=== PATIENT | female | born 1995 | race Caucasian/White ===

== ENCOUNTER → 2017-04-06 | Outpatient (CLI) | payer MEDICAID | LOC: CARD 12:07 | PROVIDERS: ATTEND Internal Medicine Cardiovascular Disease | DX: Q21.2 Atrioventricular septal defect (principal); E66.01 Morbid (severe) obesity due to excess calories | CPT/HCPCS: 93306 ==

== ENCOUNTER 2018-08-13 22:11 | Emergency (ER) | payer MEDICAID ==
[~2018-08-13] VITALS: Ht 142.2 cm; Wt 68.0 kg
--- OUTSIDE RECORDS SUMMARY | 2018-08-13 22:17 | XMS REPORT | Continuity of Care Document ---
Author Author [facility] Address Unknown Phone Unavailable Allergies There is no data. Medications There is no data. Problems Date Dx Coded Attending Type Code Diagnosis Diagnosed By 09/09/2014 JOSÉ DAN APRN 758.0 DOWN'S SYNDROME 09/09/2014 JOSÉ DAN APRN V25.9 CONTRACEPTION MANAGEMENT 03/14/2017 Jared Mitchell W 278.01 MORBID OBESITY 03/14/2017 Brown, Jared W 745.4 VENTRICULAR SEPTAL DEFECT 03/14/2017 Brown Jared W E66.01 MORBID (SEVERE) OBESITY DUE TO EXCESS CALORIES 03/14/2017 Brown, Jared W Q21.2 ATRIOVENTRICULAR SEPTAL DEFECT 03/14/2017 Brown, Jared W 278.01 MORBID OBESITY 03/14/2017 Brown, Jared W 745.4 VENTRICULAR SEPTAL DEFECT 03/14/2017 Brown, Jared W E66.01 MORBID (SEVERE) OBESITY DUE TO EXCESS CALORIES 03/14/2017 Brown, Jared W Q21.2 ATRIOVENTRICULAR SEPTAL DEFECT 03/14/2017 Brown, Jared W 278.01 MORBID OBESITY 03/14/2017 Brown, Jared W 745.4 VENTRICULAR SEPTAL DEFECT 03/14/2017 Brown, Jared W E66.01 MORBID (SEVERE) OBESITY DUE TO EXCESS CALORIES 03/14/2017 Brown, Jared W Q21.2 ATRIOVENTRICULAR SEPTAL DEFECT 04/10/2017 KATY MENESES MD Ot E66.01 MORBID (SEVERE) OBESITY DUE TO EXCESS CA 04/10/2017 KATY MENESES MD Ot Q21.2 ATRIOVENTRICULAR SEPTAL DEFECT 04/12/2017 KATY MENESES MD Ot E66.01 MORBID (SEVERE) OBESITY DUE TO EXCESS CA 04/12/2017 KATY MENESES MD Ot Q21.2 ATRIOVENTRICULAR SEPTAL DEFECT 04/17/2017 KATY MENESES MD Ot E66.01 MORBID (SEVERE) OBESITY DUE TO EXCESS CA 04/17/2017 KATY MENESES MD Ot Q21.2 ATRIOVENTRICULAR SEPTAL DEFECT Procedures Code Description Performed By Performed On J1050 DEPO PROVERA 09/09/2014 [id number] THERAPUTIC INJ SQ/IM 09/09/2014 Results Test Result Range Thyroid Stimulating Hormone - 03/14/17 09:49 TSH 3.23 mIU/mL 0.32-5.00 Encounters ACCT No. Visit Date/Time Discharge Status Pt. Type Provider Facility Loc./Unit Complaint [id number] 09/09/2014 15:44:00 09/09/2014 23:59:59 CLS Outpatient JOSÉ DAN APRN [id number] 04/06/2017 12:07:00 04/06/2017 23:59:59 CLS Outpatient KATY MENESES MD [facility] CARD AVSD [id number] 03/14/2017 09:49:00 03/14/2017 23:59:00 DIS Outpatient Jared Mitchell
--- OUTSIDE RECORDS SUMMARY | 2018-08-13 22:17 | XMS REPORT ---
Author Author ANA LOMBARDO Organization [facility] Address [address] [place] [address] Care Team Providers Care Tank Farm Attendant Name Role Phone ANA LOMBARDO Unavailable PROBLEMS Type Condition ICD9-CM Code SZO80-TH Code Onset Dates Condition Status SNOMED Code Problem Surveillance of contraceptive injection Z30.42 Active [id number] ALLERGIES Substance Reaction Event Type Date Status N.K.D.A. Unknown Non Drug Allergy May, Unknown SOCIAL HISTORY No smoking Hx information available PLAN OF CARE Activity Details Follow Up 1 Year Reason: VITAL SIGNS Height 58 in 2016-06-07 Weight 189.6 lbs 2016-06-07 Temperature 97.6 degrees Fahrenheit 2016-06-07 Heart Rate 72 bpm 2016-06-07 Respiratory Rate 20 2016-06-07 BMI 39.62 kg/m2 2016-06-07 Blood pressure systolic 112 mmHg 2016-06-07 Blood pressure diastolic 70 mmHg 2016-06-07 MEDICATIONS Medication Instructions Dosage Frequency Start Date End Date Duration Status Depo-Provera 150 MG/ML Intramuscular Every 3 months 1 ml Nov, Active RESULTS No Results PROCEDURES Procedure Date Ordered Related Diagnosis Body Site VISUAL ACUITY SCREEN Jun 07, 2016 Preventive Care Est Pt. Age 18-39 Jun 07, 2016 IMMUNIZATIONS No Known Immunizations
--- NOTE | 2018-08-13 22:55 | NUR ---
PROVIDER IN ROOM. PT REPORTS TENDERNESS UPON LIGHT PALPATION TO MEDIAL NECK PREFORMED BY PROVIDER. C-COLLAR IN PLACE. DENIES THROAT DISCOMFORT UPON SWALLOWING @ THIS TIME.
[2018-08-13 23:02] LABS: BASOPHILS # (AUTO) 0.1 10^3/uL (0.0-0.1); BASOPHILS % (AUTO) 1 % (0-10); EOSINOPHILS # (AUTO) 0.1 10^3/uL (0.0-0.3); EOSINOPHILS % (AUTO) 1 % (0-10); HEMATOCRIT 42 % (35-52); HEMOGLOBIN 14.3 G/DL (11.5-16.0); LYMPHOCYTES # (AUTO) 1.7 X 10^3 (1.0-4.0); LYMPHOCYTES % (AUTO) 21 % (12-44); MEAN CORPUSCULAR HEMOGLOBIN 31 PG (25-34); MEAN CORPUSCULAR HGB CONC 34 G/DL (32-36); MEAN CORPUSCULAR VOLUME 91 FL (80-99); MEAN PLATELET VOLUME 10.4 FL (7.4-10.4); MONOCYTES # (AUTO) 0.8 X 10^3 (0.0-1.0); MONOCYTES % (AUTO) 10 % (0-12); NEUTROPHILS # (AUTO) 5.3 X 10^3 (1.8-7.8); NEUTROPHILS % (AUTO) 67 % (42-75); PLATELET COUNT 217 10^3/uL (130-400); WHITE BLOOD COUNT 7.9 10^3/uL (4.3-11.0)
[2018-08-13 23:16] LABS: ALBUMIN 4.4 GM/DL (3.2-4.5); BILIRUBIN,TOTAL 0.4 MG/DL (0.1-1.0); CALCIUM 9.6 MG/DL (8.5-10.1); CREATININE SERUM 1.39 MG/DL (0.60-1.30); TOTAL PROTEIN 7.6 GM/DL (6.4-8.2)
[2018-08-13] MEDS ORDERED: NS IV 1000 ML 1,000 ML IV ONE (23:38)
--- NOTE | 2018-08-14 00:59 | ED Syncope ---
General Chief Complaint: Trauma-Non Activation Stated Complaint: PASSED OUT Nursing Triage Note: PT AMB TO ROOM #5 W/O DIFFICULTY. A&OX4. MOTHER @ SIDE REPORTS @ APPROX 2100 PT EXPERIENCED X3 SYNCOPAL EPISODES. MOTHER REPORTS DURING FIRST FALL, PT BEGAN TO STUMBLE WHILE VACUUMING, AND FELL FORWARD STRIKING FRONT OF HEAD ON CABINET. MOTHER REPORTS PT STOOD UP WITH HER ASSIST, AND THEN AGAIN FELL FORWARD STRIKING HEAD ON CABINET. MOTHER REPORTS PT THEN STOOD UP WITH HER ASSIST, AMB A COUPLE STEPS, AND FELL FACE FORWARD TO GROUND. MOTHER REPORTS AFTER THIRD FALL, PT WAS DISORIENTED FOR APPROX X3 MINUTES, LOST CONTINENCE OF BLADDER, AND BECAME PALE. MOTHER REPORTS THROUGHOUT THIS DAY, SHE HAS NOTICED AN INCREASE IN PT TALKING WITH SELF AND NOT FOLLOWING DIRECTIONS EASILY. C-COLLAR PLACED DURING TRIAGE. REPORTS PAIN TO THRAOT UPON SWALLOWING. Source of Information: Patient Exam Limitations: No Limitations History of Present Illness Date Seen by Provider: Aug 13, 2018 Time Seen by Provider: 22:55 Initial Comments This 22-year-old young lady with Down syndrome presents to the emergency room by private vehicle accompanied by her mother after having a syncopal episode at home. She was helping her mother in the kitchen and had been vacuuming. She then became limp and slumped over striking her head on the counter. She gene up and then did the same thing again. After striking her head on the counter a second time, she fell to the floor and strike her head on the floor. Mother reports she was unresponsive for about 3-4 minutes and pale. She also was incontinent during that time. She has no prior episodes of syncope. She sees Dr. Narayan for cardiology follow-up appointments. 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 She has had no significant health problems since then aside from tonsillectomy at age 5. Family reports that she seemed a little confused today and was talking to herself which is not her norm. She seems a little confused now as well. She does have neck pain and tenderness. She was placed in a c-collar by nursing staff during assessment. She is alert and moving all 4 extremities equally. Patient also initially complained of sore throat but states it no longer hurts. Patient did get up and shower after the syncopal episode. She complained of some pain in her forehead while showering. She has been able to ambulate without difficulty. Allergies and Home Medications Allergies Coded Allergies: No Known Drug Allergies (Unverified , 08/13/18) Patient Home Medication List Home Medication List Reviewed: Yes Review of Systems Constitutional: no symptoms reported EENTM: no symptoms reported Respiratory: no symptoms reported Cardiovascular: see HPI Gastrointestinal: no symptoms reported Genitourinary: no symptoms reported : No Musculoskeletal: see HPI Skin: no symptoms reported Psychiatric/Neurological: See HPI Past Vcfbguo-Ixhhvi-Wieshz Hx Past Med/Social Hx: Reviewed and Corrections made Patient Social History Recent Foreign Travel: No Contact w/Someone Who Travel: No Recent Infectious Disease Expo: No Past Medical History Surgeries: Yes Adenoidectomy, Cardiac (AV septal defect repaired at age 2), Tonsillectomy Respiratory: No Cardiac: Yes (AV septal defect) Neurological: Yes (Downs Syndrome) : No Reproductive Disorders: No Genitourinary: No Gastrointestinal: No Musculoskeletal: No Endocrine: No HEENT: No Cancer: No Psychosocial: Yes (Downs Syndrome) Physical Exam Vital Signs Vital Signs - First Documented 08/13/18 22:20 Temp 98.4 Pulse 65 Resp 16 B/P (MAP) 127/79 (95) Pulse Ox 97 O2 Delivery Room Air Capillary Refill : Less Than 3 Seconds Height, Weight, BMI Height: 4'8.00" Weight: 150lbs. oz. 68.600096cz; BMI Method:Stated General Appearance: No Apparent Distress, WD/WN HEENT: PERRL/EOMI, Normal ENT Inspection, Other (teeth intact) Neck: Normal Inspection, Tender Midline, Other (c-collar in place) Cardiovascular: Regular Rate, Rhythm, No Edema, No Murmur Respiratory: Lungs Clear, Normal Breath Sounds, No Accessory Muscle Use, No Respiratory Distress Gastrointestinal: Normal Bowel Sounds, Non Tender, Soft Extremities: Normal Inspection, Non Tender, No Pedal Edema Neurologic/Psychiatric: Alert, Oriented x3, No Motor/Sensory Deficits, Normal Mood/Affect, investigation clerk II-XII Norm as Tested Cranial Nerves: Normal Hearing, Normal Speech, PERRL Motor/Sensory: No Motor Deficit, No Sensory Deficit Skin: Normal Color, Warm/Dry Progress/Results/Core Measures Results/Orders Lab Results Laboratory Tests Test 08/13/18 22:40 Range/Units White Blood Count 7.9 4.3-11.0 10^3/uL Red Blood Count 4.60 4.35-5.85 10^6/uL Hemoglobin 14.3 11.5-16.0 G/DL Hematocrit 42 35-52 % Mean Corpuscular Volume 91 80-99 FL Mean Corpuscular Hemoglobin 31 25-34 PG Mean Corpuscular Hemoglobin Concent 34 32-36 G/DL Red Cell Distribution Width 14.0 10.0-14.5 % Platelet Count 217 130-400 10^3/uL Mean Platelet Volume 10.4 7.4-10.4 FL Neutrophils (%) (Auto) 67 42-75 % Lymphocytes (%) (Auto) 21 12-44 % Monocytes (%) (Auto) 10 0-12 % Eosinophils (%) (Auto) 1 0-10 % Basophils (%) (Auto) 1 0-10 % Neutrophils # (Auto) 5.3 1.8-7.8 X 10^3 Lymphocytes # (Auto) 1.7 1.0-4.0 X 10^3 Monocytes # (Auto) 0.8 0.0-1.0 X 10^3 Eosinophils # (Auto) 0.1 0.0-0.3 10^3/uL Basophils # (Auto) 0.1 0.0-0.1 10^3/uL Sodium Level 139 135-145 MMOL/L Potassium Level 4.0 3.6-5.0 MMOL/L Chloride Level 106 98-107 MMOL/L Carbon Dioxide Level 20 L 21-32 MMOL/L Anion Gap 13 5-14 MMOL/L Blood Urea Nitrogen 17 7-18 MG/DL Creatinine 1.39 H 0.60-1.30 MG/DL Estimat Glomerular Filtration Rate 47 BUN/Creatinine Ratio 12 Glucose Level 84 70-105 MG/DL Calcium Level 9.6 8.5-10.1 MG/DL Corrected Calcium 9.3 8.5-10.1 MG/DL Total Bilirubin 0.4 0.1-1.0 MG/DL Aspartate Amino Transf (AST/SGOT) 24 5-34 U/L Alanine Aminotransferase (ALT/SGPT) 17 0-55 U/L Alkaline Phosphatase 69 40-136 U/L Total Protein 7.6 6.4-8.2 GM/DL Albumin 4.4 3.2-4.5 GM/DL My Orders Orders - SHEILA ARGUETA MD Cbc With Automated Diff (08/13/18 22:54) Comprehensive Metabolic Panel (08/13/18 22:54) Saline Lock/Iv-Start (08/13/18 22:54) Ekg Tracing (08/13/18 22:54) Monitor-Rhythm Ecg Trace Only (08/13/18 22:54) Ct Head/Cervical Spine Wo (08/13/18 23:13) Chest 1 View, Ap/Pa Only (08/13/18 23:13) Ns Iv 1000 Ml (Sodium Chloride 0.9%) (08/13/18 23:38) Medications Given in ED Current Medications Medications Dose Ordered Sig/Yecenia Route Start Time Stop Time Status Last Admin Dose Admin Sodium Chloride 1,000 ml @ 0 mls/hr Q0M ONCE IV 08/13/18 23:38 08/13/18 23:40 DC 08/13/18 23:47 0 MLS/HR Vital Signs/I&O 08/13/18 08/14/18 22:20 01:50 Temp 98.4 98.4 Pulse 65 65 Resp 16 16 B/P (MAP) 127/79 (95) 109/77 (88) Pulse Ox 97 99 O2 Delivery Room Air Room Air Blood Pressure Mean: 95 Progress Progress Note : Progress Note C-collar was applied by nursing staff during initial assessment. CT of the head and cervical spine was obtained. There is a questionable fracture of the facet joint on the right of C4. Patient does have pain in the posterior neck which could correlate. I discussed the situation with Dr. Gan, orthopedist on-call. Since he is not credentialed before spines, he recommended I discussed the case with a neurosurgeon or spine surgeon. Case was reviewed with Dr. Farmer, neurosurgeon pulmonary specialist at [facility]. He recommended the patient be assessed further by neurosurgery before determining disposition. Mother is agreeable to transfer to [facility] for further evaluation. Creatinine was mildly elevated and IV fluids were administered. Initial ECG Impression Date: Aug 13, 2018 Initial ECG Impression Time: 23:46 Initial ECG Rate: 59 Initial ECG Rhythm: Normal Sinus Initial ECG Intervals: Normal Initial ECG Impression: Normal Comment Normal sinus rhythm with no ST elevation or depression. No abnormal intervals or axis deviation. Diagnostic Imaging Diagonstic Imaging: CT Plain Films/CT/US/NM/MRI: c-spine, head Comments CT head and C-spine viewed by me and a stat rad report reviewed. CT of the head was unremarkable. CT of the C-spine demonstrated possible C4 right superior facet nondisplaced fracture versus chronic changes. Diagonstic Imaging: Xray Plain Films/CT/US/NM/MRI: chest Comments Chest x-ray viewed by me. Report not yet available. No acute abnormalities appreciated. Departure Impression Primary Impression: Syncope and collapse Additional Impression: Fx C4 vertebra-closed Qualified Codes: S12.391A - Other nondisplaced fracture of fourth cervical vertebra, initial encounter for closed fracture Disposition: XFER SHT-TRM HOSP Condition: Improved Transfer Time Spoke to Accepting Phy: 00:55 Transfer Progress Notes Case discussed with Dr. Farmer, neurosurgeon pulmonary specialist, and Dr. Zuluaga, ER physician , who graciously accepted the transfer. Transfer Time: 01:50 Transfer Facility: [facility] Method of Transfer: EMS Departure-Patient Inst. Referrals: TRINY BROWNE DO (PCP) Primary Care Physician VIVIANA SWEENEY (Family) Primary Care Physician SHEILA ARGUETA MD Aug 14, 2018 00:59
[2018-08-14 01:50] VITALS: BP 109/77
--- NOTE | 2018-08-14 07:12 | Diagnostic Imaging Report ---
PROCEDURE: CT head and CT cervical spine without contrast. TECHNIQUE: Multiple contiguous axial images were obtained through the brain and cervical spine without the use of intravenous contrast. Sagittal and coronal reformations through the cervical spine were then performed. Auto Exposure Controls were utilized during the CT exam to meet ALARA standards for radiation dose reduction. INDICATION: Syncope, injury to the posterior head and neck. COMPARISON: None FINDINGS: CT head: The ventricles and cortical sulci appear age-appropriate. There is no midline shift or mass effect. No acute intracranial hemorrhage is seen. There is no CT evidence of acute territorial ischemia. No acute fracture is seen. There is a mucous retention cyst in the right maxillary sinus. CT cervical spine: There is no spondylolisthesis. There is a small defect in the right C4 superior articular process, which appears to be chronic. There is also a chronic appearing defect at the right superior facet of C6. The vertebral body heights are preserved. The disc heights are generally preserved. No bony fragments or hyperdense fluid collections are seen in the spinal canal. The soft tissues about the cervical spine are otherwise unremarkable. Mild motion artifact is present. IMPRESSION: 1. No acute intracranial hemorrhage or CT evidence of acute territorial ischemia. No calvarium fracture is seen. 2. Small defects in the right superior facet of C4 and C6 are thought to most likely be chronic. No definite acute fracture is seen in the cervical spine. Dictated by: Dictated on workstation # [id number]
--- NOTE | 2018-08-14 07:12 | Diagnostic Imaging Report ---
INDICATION: Passed out COMPARISON STUDIES: None FINDINGS: Portable view of the chest demonstrates sternotomy changes. Heart size and vascularity are normal. The lungs are clear. There are no pleural effusions. IMPRESSION: There are no acute findings. Dictated by: Dictated on workstation # [id number]
== END 2018-08-14 01:50 | disposition short-term general hospital (02) ==
LOC: EDUNIT# 22:11 → ER 22:13
DX: S12.391A Other nondisplaced fracture of fourth cervical vertebra, initial encounter for closed fracture (principal); R55 Syncope and collapse; Q90.9 Down syndrome, unspecified; Z90.89 Acquired absence of other organs; W01.198A Fall on same level from slipping, tripping and stumbling with subsequent striking against other object, initial encounter; Y92.000 Kitchen of unspecified non-institutional (private) residence as the place of occurrence of the external cause
CPT/HCPCS: 36415; 70450; 71045; 72125; 80053; 85025; 93005; 93041

== ENCOUNTER 2018-09-23 12:53 | Outpatient (RCR) | payer MEDICAID | END 2018-12-22 | disposition home or self-care (01) | LOC: CARD 12:53 | PROVIDERS: ATTEND Physician Assistant | DX: Q21.2 Atrioventricular septal defect (principal); R55 Syncope and collapse; E66.01 Morbid (severe) obesity due to excess calories | CPT/HCPCS: 93270 ==

== ENCOUNTER → 2022-03-29 | Outpatient (CLI) | payer MEDICAID | LOC: CARD 13:58 | PROVIDERS: ATTEND Physician Assistant | DX: I10 Essential (primary) hypertension (principal); Z87.74 Personal history of (corrected) congenital malformations of heart and circulatory system | CPT/HCPCS: 93306 ==

== ENCOUNTER 2022-04-27 05:43 | Outpatient (CLI) | payer MEDICAID ==
[~2022-04-27] VITALS: Ht 144.8 cm; Wt 86.2 kg
[2022-05-02] MEDS ORDERED: FEXO-338 PO (11:23)
[2022-05-02] MEDS ORDERED: FLDR.1T PO (11:23)
[2022-05-02] MEDS ORDERED: LEVE100015 PO (11:23)
== END 2022-05-02 15:21 | disposition home or self-care (01) ==
LOC: PREOP 05:43
PROVIDERS: ATTEND Specialist
DX: Z01.818 Encounter for other preprocedural examination (principal)

== ENCOUNTER 2022-05-05 05:53 | Day surgery (SDC) | payer MEDICAID ==
[2022-05-05] VITALS (7 sets, daily range): BP systolic 103–114; BP diastolic 52–80
[~2022-05-05] VITALS: Ht 144.7 cm; Wt 86.2 kg
[~2022-05-05 05:53] MED LIST: FEXO-338 PO; FLDR.1T PO; LEVE100015 PO
[2022-05-05] MEDS ORDERED: MOXIFLOXACIN OPHTH SOLN 5 MG/ML 0.3 ML SYRINGE OP ONE (06:15)
[2022-05-05] MEDS ORDERED: POVIDONE (BETADINE) OPHTH SOLN 5% 30 ML OP ONE (06:15)
[2022-05-05] MEDS ORDERED: TIMOLOL 0.5% (CATARACTS) 0.3 ML BTL OU PRN (06:15)
[2022-05-05] MEDS: TETRACAINE 0.5% OPHTH SOLN 4 ML BTL (SINGLE DOSE ONLY) OU PRN ×4 (06:19→06:43)
[2022-05-05] MEDS: PHENYLEPHRINE 10% OPHTH (NEO-SYN) 5 ML BTL OU SCH ×3 (06:31→06:43)
[2022-05-05] MEDS: TROPICAMIDE 1% OPH SOLN (MYDRIACYL) 15 ML BTL OP SCH ×3 (06:31→06:43)
[2022-05-05] MEDS ORDERED: proPOfol 200 MG/20 ML (DIPRIVAN) VIAL IV ONE (06:55)
[2022-05-05] MEDS ORDERED: MIDAZOLAM 2 MG/2 ML (VERSED) VIAL ONE (06:55)
[2022-05-05] MEDS ORDERED: LIDOCAINE PF 2% 5 ML (XYLOCAINE) VIAL ONE (06:55)
[2022-05-05] MEDS ORDERED: ONDANSETRON 4 MG/2 ML (SDV) Z0FRAN ONE (06:55)
[2022-05-05] MEDS ORDERED: SEVOFLURANE (ULTANE) 15 ML INHAL SOLN ONE (07:24)
--- NOTE | 2022-05-05 07:26 | Ophthalmologist Pre-Op Note ---
Pre-Operative Progress Note H&P Reviewed The H&P was reviewed, patient examined and no changes noted. Date H&P Reviewed: May 05, 2022 Time H&P Reviewed: 06:57 Pre-Op Dx Cataract, Right Eye VIDYA THOMAS MD May 05, 2022 07:26
--- NOTE | 2022-05-05 07:27 | Ophthalmology Operative Report ---
Cataract removal/placement IOL PREOPERATIVE DIAGNOSIS: Cataract Right Eye POSTOPERATIVE DIAGNOSIS: Cataract Right Eye PROCEDURE: Cataract removal and placement of posterior chamber implant, right eye SURGEON: Alexandr Thomas ANESTHESIA: General COMPLICATIONS: None ESTIMATED BLOOD LOSS: Minimal DESCRIPTION OF PROCEDURE: After proper informed consent was obtained, the patient, a 26 female, was taken to the Operating Room and the right eye was anesthetized with tetracaine. The right eye was then prepped and draped in the usual manner. A wire lid speculum was placed. A paracentesis was made at the left hand position. Preservative free lidocaine was injected into the anterior chamber followed by viscoelastic. A clear corneal incision was made in the temporal position. A capsulorrhexis was preformed and the central nuclear and cortical material were removed. The posterior capsule was polished and Andrea 11.5 AU00T0 IOL was placed into the capsular bag. The residual viscoelastic was aspirated and balanced saline solution was injected into the anterior chamber. Moxifloxacin was injected into the anterior chamber. The wound was checked and found to be water tight. The patient tolerated the procedure well without complications. ALEXANDR THOMAS MD May 05, 2022 07:27
[2022-05-05] MEDS ORDERED: LACTATED RINGERS 1,000 ML IV PRN (07:45)
[2022-05-05] MEDS ORDERED: ONDANSETRON 4 MG/2 ML (SDV) Z0FRAN IVP PRN (07:45)
[2022-05-05] MEDS ORDERED: morphine INJ 10 MG/ML 1ML (SYR OR VIAL) IVP ONE (07:45)
[2022-05-05] MEDS ORDERED: acetaZOLAMIDE ER 500 MG CAP (DIAMOX SEQUELS) PO ONE (08:00)
--- NOTE | 2022-05-05 13:47 | Anesthesia-General Post-Op ---
General Patient Condition Mental Status/LOC: Same as Preop Cardiovascular: Satisfactory Nausea/Vomiting: Absent Respiratory: Satisfactory Pain: Controlled Complications: Absent Post Op Complications Complications None Follow Up Care/Instructions Patient Instructions None needed. Anesthesia/Patient Condition Patient Condition Patient is doing well, no complaints, stable vital signs, no apparent adverse anesthesia problems. No complications reported per nursing. PETER SUAZO CRNA May 05, 2022 13:46
== END 2022-05-05 08:30 | disposition home or self-care (01) ==
LOC: SDC 05:53
PROVIDERS: ATTEND Specialist
DX: H25.9 Unspecified age-related cataract (principal)
CPT/HCPCS: 66984; V2632

== ENCOUNTER 2022-05-18 09:57 | Outpatient (CLI) | payer MEDICAID | END 2022-05-25 08:15 | disposition home or self-care (01) | LOC: PREOP 09:57 | PROVIDERS: ATTEND Specialist | DX: Z01.818 Encounter for other preprocedural examination (principal) ==

== ENCOUNTER 2022-05-26 06:09 | Day surgery (SDC) | payer MEDICAID ==
[~2022-05-26] VITALS: Ht 144.8 cm; Wt 86.2 kg
[2022-05-26] MEDS ORDERED: MOXIFLOXACIN OPHTH SOLN 5 MG/ML 0.3 ML SYRINGE OP ONE (06:15)
[2022-05-26] MEDS ORDERED: POVIDONE (BETADINE) OPHTH SOLN 5% 30 ML OP ONE (06:15)
[2022-05-26] MEDS ORDERED: TIMOLOL 0.5% (CATARACTS) 0.3 ML BTL OU PRN (06:15)
[2022-05-26] MEDS: TETRACAINE 0.5% OPHTH SOLN 4 ML BTL (SINGLE DOSE ONLY) OU PRN ×4 (06:21→06:41)
[2022-05-26] MEDS: PHENYLEPHRINE 10% OPHTH (NEO-SYN) 5 ML BTL OU SCH ×3 (06:31→06:41)
[2022-05-26] MEDS: TROPICAMIDE 1% OPH SOLN (MYDRIACYL) 15 ML BTL OP SCH ×3 (06:31→06:41)
[2022-05-26] MEDS ORDERED: ONDANSETRON 4 MG/2 ML (SDV) Z0FRAN ONE (06:47)
[2022-05-26] MEDS ORDERED: LIDOCAINE PF 2% 5 ML (XYLOCAINE) VIAL ONE (06:47)
[2022-05-26] MEDS ORDERED: proPOfol 200 MG/20 ML (DIPRIVAN) VIAL IV ONE (06:47)
[2022-05-26] MEDS ORDERED: fentaNYL INJ 100 MCG/2 ML AMP ONE (06:47)
[2022-05-26] MEDS ORDERED: MIDAZOLAM 2 MG/2 ML (VERSED) VIAL ONE (06:47)
--- NOTE | 2022-05-26 06:49 | Ophthalmologist Pre-Op Note ---
Pre-Operative Progress Note H&P Reviewed The H&P was reviewed, patient examined and no changes noted. Date H&P Reviewed: May 26, 2022 Time H&P Reviewed: 06:49 Pre-Op Dx Cataract, Left Eye VIDYA THOMAS MD May 26, 2022 06:49
[2022-05-26 07:00] VITALS: BP 103/65
[2022-05-26] MEDS ORDERED: LACTATED RINGERS 1,000 ML IV PRN (07:15)
[2022-05-26] MEDS ORDERED: SEVOFLURANE (ULTANE) 15 ML INHAL SOLN ONE (07:39)
--- NOTE | 2022-05-26 07:41 | Ophthalmology Operative Report ---
Cataract removal/placement IOL PREOPERATIVE DIAGNOSIS: Cataract Left Eye POSTOPERATIVE DIAGNOSIS: Cataract Left Eye PROCEDURE: Cataract removal and placement of posterior chamber implant, left eye SURGEON: Alexandr Thomas ANESTHESIA: General COMPLICATIONS: None ESTIMATED BLOOD LOSS: Minimal DESCRIPTION OF PROCEDURE: After proper informed consent was obtained, the patient, a 26 female, was taken to the Operating Room and the left eye was anesthetized with tetracaine. The left eye was then prepped and draped in the usual manner. A wire lid speculum was placed. A paracentesis was made at the left hand position. Preservative free lidocaine was injected into the anterior chamber followed by viscoelastic. A clear corneal incision was made in the temporal position. A capsulorrhexis was preformed and the central nuclear and cortical material were removed. The posterior capsule was polished and an Andrea 12.0 AU00T0 was placed into the capsular bag. The residual viscoelastic was aspirated and balanced saline solution was injected into the anterior chamber. Moxifloxacin was injected into the anterior chamber. The wound was checked and found to be water tight. The patient tolerated the procedure well without complications. ALEXANDR THOMAS MD May 26, 2022 07:41
[2022-05-26 07:42] VITALS: BP 91/43
[2022-05-26 07:50] VITALS: BP 100/59
[2022-05-26 08:00] VITALS: BP 99/62
[2022-05-26 08:08] VITALS: BP 95/71
--- NOTE | 2022-05-26 09:50 | Anesthesia-General Post-Op ---
General Patient Condition Mental Status/LOC: Same as Preop Cardiovascular: Satisfactory Nausea/Vomiting: Absent Respiratory: Satisfactory Pain: Controlled Complications: Absent Post Op Complications Complications None Follow Up Care/Instructions Patient Instructions None needed. Anesthesia/Patient Condition Patient Condition Patient was doing well this morning after the procedure with no complaints, stable vital signs, no apparent adverse anesthesia problems. No complications reported per nursing. SIMA VO DO May 26, 2022 09:50
[2022-05-26] MEDS ORDERED: acetaZOLAMIDE ER 500 MG CAP (DIAMOX SEQUELS) PO ONE (10:00)
== END 2022-05-26 08:21 | disposition home or self-care (01) ==
LOC: SDC 06:09
PROVIDERS: ATTEND Specialist
DX: H25.9 Unspecified age-related cataract (principal)
CPT/HCPCS: 66984; 84703; V2632

== ENCOUNTER → 2023-04-06 | Outpatient (CLI) | payer MEDICAID ==
[~2023-04-06] MED LIST changes: +CATHETER FLUSH 10 ML SYR IV PRN; +HOLD METFORMIN - RECEIVED CONTRAST 20 ML VIAL IV SCH; +IOHEXOL 350 MG/ML 100 ML (OMNIPAQUE 350) VIAL IV ONE; +NS 100 ML (IVPB) BAG IV ONE
--- NOTE | 2023-04-06 08:34 | Diagnostic Imaging Report ---
PROCEDURE: CT angiography of the chest with contrast. TECHNIQUE: Multiple contiguous axial images were obtained through the chest after uneventful bolus administration of intravenous contrast. 3D reconstructed CTA MIP acquisitions were also performed. Auto Exposure Controls were utilized during the CT exam to meet ALARA standards for radiation dose reduction. INDICATION: Syncope. Study is performed to evaluate the thoracic aorta. The thoracic aorta is normal in caliber. There is no dissection. Visualized central pulmonary arteries are patent. There is no pericardial or pleural fluid identified. No pulmonary infiltrates, nodules or masses are detected. Upper abdomen is unremarkable. IMPRESSION: Unremarkable CT angiogram of the chest. There is no evidence of acute aortic disease. Dictated by: Dictated on workstation # [id number]
== END ==
LOC: RAD 07:25
PROVIDERS: ATTEND Internal Medicine Cardiovascular Disease
DX: R55 Syncope and collapse (principal)
CPT/HCPCS: 71275